=== PATIENT | female | born 1995 | race African-American/Black ===

== ENCOUNTER 2023-09-11 15:58 | Outpatient (AMB) | payer OTHER, SELFPAY ==
--- NOTE | 2023-09-11 16:08 | MHC.OFFWIV ---
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 sharp pain back of head Intake Note: pt is here for c.o earache, ringing, sharp pain in back of head, migraine for over a week Patient Tobacco Use Status: Never used Tobacco Allergies No Known Allergies Allergy (Verified 09/11/23 16:10) Do you need a note to return to daycare/school/sports/work: Yes HPI HPI Comments History of Present Illness Details She presents to office with R ear pain and headache Last year she had MD for R ear clogged due to earwax She said it ended up going away and she never had it cleaned States 1 month ago had cold symptoms [place] like R ear was muffled and difficult hearing She was trying to pop ear without relief Has had intermittent ringing in R ear since States some headaches and neck ache ongoing x 1 week No HT or LOC She admits to increased stress She said no pain now 0/10 Intermittent headaches; usually lasts hours She has taken ibupofen when she gets the pain She said eventually it will go away PFSH Social History Patient Tobacco Use Status: Never used Tobacco Review of Systems Const Denies body aches, Denies chills, Denies fatigue, Denies fever(s) and Reports headache(s) Eyes Denies blurry vision and Denies diplopia ENT Denies vertigo, Denies ear discharge, Reports otalgia (ringing and decreased hearing R ear), Reports headache(s), Denies nasal discharge, Reports neck pain (trapezius pain which feeds into headache) and Denies sinus pressure Card Denies chest pain, Denies syncope and Denies dyspnea Resp Denies cough and Denies dyspnea Musc Denies back pain and Reports neck pain (trapezius pain which feeds into headache) Skin/Breast Denies rash Neuro Denies confusion, Denies vertigo, Denies syncope, Reports headache(s), Denies lack of coordination and Denies focal weakness Psych Denies confusion Endo Denies fatigue Physical Exam Vital Signs: Last Vital Signs Temp 98.6 F 09/11/23 16:09 Pulse 76 09/11/23 16:09 BP 112/62 09/11/23 16:09 Pulse Ox 98 09/11/23 16:09 BMI result Body Mass Index 26.0 General: Non-toxic, NAD. Speaking full sentences. Skin: Warm dry throughout Eye: EOMI HENT: Airway patent. Uvula midline. No pharyngeal erythema or edema. 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 R canal + cerumen, unable to visualize TM. L TM non-erythematous, non-bulging. No TM perforation or hemotympanum noted. Neck: No c-spine tenderness. + trapezius tenderness bilaterally. Lymph: no lymphadenopathy Respiratory: CTA bilaterally. No wheezes, rales or rhonchi Cardiac: RRR. No murmur MSK: Full ROM extremities. Neurology: A/O x 3. Negative pronator drift. 5/5 director of perioperative services strength. CN 2-12 grossly intact. No aphasia or facial droop. Gait without abnormality Psych: Good mood and affect Const General: No confusion Orientation/consciousness: No confusion Neuro General: No confusion Office Procedures Cerumen Removal From which ear canal was the cerumen removed: right Removal: cerumen loop/spoon Notes: patient tolerated procedure well, no complications and ear canal clear [id number] Wax Removal by Spoon/Curette Assessment & Plan Assessment & Plan (1) Impacted cerumen of right ear: Code(s): H61.21 - Impacted cerumen, right ear Plan: Patient seen and evaluated. Verbal consent obtained and earwax removed See procedure note (2) Tension headache: Code(s): G44.209 - Tension-type headache, unspecified, not intractable Plan Pt seen and evaluated. 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 Decrease screen time. Stay hydrated Ibuprofen as needed but should not be daily or every other day If continual, f.u with pcp to discuss other medication alterntives Patient gave verbal understanding and had no additional questions or concerns at time of discharge All questions answered Coding Level of Care Code New Pt Level 3 (91058) Diagnoses Impacted cerumen of right ear H61.21 Tension headache G44.209 CPT Codes Office Procedure - CPT: 51150-Dhw Wax Removal by Spoon/Curette ([id number])
[2023-09-11 16:09] VITALS: BP 112/62; PULSE 76; TEMP 37; O2SAT 98; BMI 26.0
== END 2023-09-11 16:34 | disposition home or self-care (01) ==
PROVIDERS: PCP Nurse Practitioner Family; Visit Provider Physician Assistant
DX: G44.209 Tension-type headache, unspecified, not intractable (principal); H61.21 Impacted cerumen, right ear
CPT/HCPCS: 69210; 99203

== ENCOUNTER 2023-09-30 13:48 | Outpatient (AMB) | payer OTHER, SELFPAY ==
[2023-09-30 13:56] VITALS: BP 104/68; PULSE 80; O2SAT 100; BMI 25.9
--- NOTE | 2023-09-30 13:56 | A.OFFPC_ITS ---
Vital Signs 09/30/23 13:56 Height 5 ft 5 in Weight 155 lb 8 oz BMI 25.9 BP 104/68 Blood Pressure Location Rt brachial Position Sitting Pulse 80 Pulse Source Pulse Oximeter Pulse Oximetry (%) 100 Oxygen Delivery Method Room Air Intake Visit Reasons: New PT Req PE Intake Note: Pt is here to [facility] Pt has hydropulper [place] [facility] [place] last menstrual period known: Yes Last menstrual period: 09/23/23 Allergies No Known Allergies Allergy (Verified 09/30/23 14:06) Medication List - Last Reconciled 09/30/23 by ALEKSANDR Roche No Known Home Meds Tobacco use date assessed: 09/30/23 Dental Screening Dental Screen Date: 09/30/23 Did you have a dental visit in the last 12 months?: Yes Did you have a dental problem in the last 6 months where you did not have access to dental care?: No Was dental information given to patient?: Patient has dentist HPI HPI Comments History of Present Illness Details Patient is a 27-year-old female in today for [facility] care. She was s een in our walk-in clinic 3 weeks prior for cerumen removal the right ear. Patient has OBGYN here at [place]. Will order fasting labs. She has no significant past medical history. 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 1. Little interest or pleasure in doing things: several days 2. Feeling down, depressed, or hopeless: several days 3. Trouble falling or staying asleep, or sleeping too much: not at all 4. Feeling tired or having little energy: several days 5. Poor appetite or overeating: not at all 6. Feeling bad about yourself - or that you are a failure or have let yourself or your family down: not at all 7. Trouble concentrating on things, such as reading the newspaper or watching television: several days 8. Moving or speaking so slowly that other people could have noticed. Or the opposite - being so fidgety or restless that you have been moving around a lot more than usual: not at all 9. Thoughts that you would be better off or of hurting yourself in some way: not at all Total score: 4 Depression Screening Interpretation: Negative Depression Screening Done: Yes 95219 - PHQ-9 Billing: Yes Source: Developed by Drs. Kale Castillo, Dayanara Fisher, Servando Holcomb and colleagues, with an educational inder from [employer]. Thrive Questionnaire Date Thrive assessed: 09/30/23 I am a: Patient What is your living situation today?: I have a steady place to live Within the past 12 months, did the food you bought not last and you didn't have the money to get more?: Sometimes True Within the past 12 months, did you worry whether your food would run out before you got money to buy more?: Sometimes True Do you have trouble paying for medicines?: No Do you have trouble getting transportation to medical appointments?: No Do you have trouble paying your heating and electricity bill?: No Do you have trouble taking care of your child, family member or friend?: No Do you have trouble with day-to-day activities such as bathing, preparing meals, shopping, managing finances, etc.?: No Are you currently unemployed and looking for a job?: No Are you interested in more education?: Yes THRIVE Score: 2 AUDIT C Alcohol Use Questionnaire (AUDIT-C) 1. How often do you have a drink containing alcohol?: 2-4 times a month 2. How many drinks containing alcohol do you have on a typical day when you are drinking?: 1 or 2 3. How often do you have six or more drinks on one occasion?: Never Total Score: 2 COURTNEY-7 AMB Questionnaire COURTNEY-7 Date COURTNEY - 7 assessed: 09/30/23 Feeling nervous, anxious, or on edge: 1 = Several days Not being able to stop or control worryin = Several days Worrying too much about different things: 1 = Several days Trouble relaxin = Several days Being so restless that it is hard to sit still: 0 = Not at all Becoming easily annoyed or irritable: 0 = Not at all Feeling afraid as if something awful might happen: 0 = Not at all Total COURTNEY-7 score (0-4 normal; 5-9 mild; 10-14 moderate; 15-21 severe): 4 Source: Developed by Drs. Kale Castillo, Dayanara Fisher, Servando Holcomb and colleagues, with an educational inder from [employer]. COURTNEY-7 Assessment Billing COURTNEY-7 Assessment Tool: COURTNEY-7 Assessment 48857 Review of Systems Const Details: Constitutional : No Weight loss, No Fever, No Chills, No Fatigue, No Malaise Cardiovascular : No Chest Pain, No SOB, No Dyspnea on Exertion, No Orthopnea, No Edema, No Palpitations Respiratory : No Cough, No Sputum, No Wheezing Gastrointestinal : No Nausea, No Vomiting, No Diarrhea, No Constipation, No abdominal Pain, No Hematochezia, No Melena Neuro : No Weakness, No Numbness, No Dizziness, No Headache Psych : Admits some Anxiety/Panic, No Depression, Denies SI/HI. All other systems reviewed and are negative Physical exam (Primary Care) Vital Signs: Last Vital Signs Pulse 80 09/30/23 13:56 BP 104/68 09/30/23 13:56 Pulse Ox 100 09/30/23 13:56 Oxygen Delivery Method Room Air 09/30/23 13:56 Care Plan Goal for BP management: Vital signs reviewed stable. BMI result Body Mass Index 25.9 Tobacco/Smoking Status: Tobacco use Status Tobacco use date assessed 09/30/23 09/30/23 14:02 Patient Tobacco Use Status Never used Tobacco 09/30/23 14:00 e-Cigarette/Vaping Use Never Used 09/30/23 14:02 Depression Screening Interpretation: Negative Const Other: Appearance: Alert.? Oriented X3.? No acute distress.? Head: Normocephalic, atraumatic, Neck: Normal inspection.? Neck supple.? CVS: Normal heart rate and rhythm.? Pulses normal.? Respiratory: No respiratory distress.? Breath sounds normal.? Neuro: Oriented X 3.? No motor deficit.? No sensory deficit. CN 2-12 intact Assessment and Plan Assessment & Plan (1) Anxiety: Comment: Patient states that she feels some anxiety and would like to try therapy. Patient is declining medication at this time. Patient is meeting today with community navigator to help establish therapist. Patient has been giving information for crisis hotline in case she ever develops feelings of SI or HI. Code(s): F41.9 - Anxiety disorder, unspecified Plan: Take your medications as prescribed. If you were prescribed antibiotics today, it is important that you take your medication to their entirety, do not skip any doses, do not finish them early. Follow-up with your primary care provider this week. Return to the emergency department with new or worsening symptoms. Such as fevers, chills, chest pain, shortness of breath, nausea, vomiting, dizziness, headache, vision changes, lethargy In case of emergency call 911 Plan Follow-up in 4 months with physical exam after fasting blood draw. Orders: Orders Complete Blood Count Auto Diff Today Z13.0 - Encounter for screening for diseases of the blood and blood-forming organs and certain disorders involving the immune mechanism Lipid Panel Today Z13.220 - Encounter for screening for lipoid disorders TSH reflex Free T4 Today Z13.29 - Encounter for screening for other suspected endocrine disorder Vitamin D 25-OH (D2 and D3) Today Z13.21 - Encounter for screening for nutritional disorder Comprehensive Met. Panel Today Z91.89 - Other specified personal risk factors, not elsewhere classified UA CC w/rflx Micro + Cult Today Z13.89 - Encounter for screening for other disorder Vitamin B6 Today Z13.21 - Encounter for screening for nutritional disorder Vitamin B12 Today Z13.21 - Encounter for screening for nutritional disorder Coding Level of Care Code Est Pt Level 3 (76082) Diagnoses Anxiety F41.9 Additional Codes COURTNEY-7 Assessment Billing - COURTNEY-7 Assessment Tool: COURTNEY-7 Assessment 60336 ([id number]) Time Spent (min) 25
== END 2023-09-30 14:49 | disposition home or self-care (01) ==
PROVIDERS: PCP Nurse Practitioner Family; Visit Provider Nurse Practitioner Primary Care
DX: F41.9 Anxiety disorder, unspecified (principal)
CPT/HCPCS: 99213

== ENCOUNTER 2023-09-30 14:49 | Outpatient (REF) | payer OTHER, SELFPAY ==
[2023-09-30 16:07] LABS: Appearance Urine Turbid; Color Urine Dark Yellow; Glucose Urine UA Negative (Negative); Leukocyte Esterase Urine Trace (Negative); Nitrite Urine Negative (Negative); PH 5.5 (5.0-9.0); Specific Gravity - Urine >= 1.030 (1.005-1.025); UMIC TRIGGER UACC YES; Urine Blood Negative (Negative); Urine Ketones Trace mg/dL (Negative); Urine Protein Trace mg/dL (Neg-Trace)
[2023-09-30 16:22] LABS: MANUAL DIFF FLAG NO
[2023-09-30 16:35] LABS: Basophils Absolute Auto 0.1 X10*3/uL (0.0-0.2); Basophils Percent Auto 1.1 % (0-2); Eosinophils Absolute Auto 0.1 X10*3/uL (0.0-0.4); Eosinophils Percent Auto 1.6 % (0-4); Hematocrit 43.5 % (37.0-47.0); Hemoglobin 14.5 g/dl (12.0-16.0); Imm Gran Abs Auto 0.02 X10*3/uL (0.00-0.03); Imm Gran Pct Auto 0.3 % (0.0-0.4); Lymphocytes Absolute Auto 1.2 X10*3/uL (1.2-4.9); Lymphocytes Percent Auto 19.8 % (20-40); Mean Corpuscular HGB Conc 33.3 g/dl (31.0-35.0); Mean Corpuscular Hemoglobin 29.6 pg (27.0-33.0); Mean Corpuscular Volume 88.8 fL (80.0-98.0); Mean Platelet Volume 9.9 fL (9.4-12.3); Monocytes Absolute Auto 0.5 X10*3/uL (0.1-1.2); Monocytes Percent Auto 7.7 % (2-11); Neutrophils Absolute Auto 4.3 x10*3/uL (2.0-8.3); Neutrophils Percent Auto 69.5 % (45-73); Platelet Count 300 X10*3/uL (160-400); Red Cell Distribution Width 12.5 % (11.0-16.0); White Blood Count 6.3 X10*3/uL (4.8-10.8)
[2023-09-30 16:50] LABS: Alanine Aminotransferase 13 U/L (0-31); Albumin Level 4.9 g/dL (3.5-5.0); Alkaline Phosphatase 61 U/L (39-117); Anion Gap 12 (12-20); Aspartate Amino Transferase 18 U/L (5-31); Bilirubin Total 0.7 mg/dL (0.0-1.0); Blood Urea Nitrogen 13 mg/dL (9-16); Calcium 9.7 mg/dL (8.4-10.2); Carbon Dioxide 25 mmol/L (22-29); Chloride 108 mmol/L (96-108); Cholesterol 193 mg/dL (<200); Estimated Glomerular Filt Rate > 60; Glucose Random 90 mg/dL (60-115); HDL Cholesterol 68 mg/dL (>40); LDL Cholesterol Calculated 115 mg/dL (<100); Potassium 4.3 mmol/L (3.3-5.1); Sodium 141 mmol/L (135-145); Triglycerides 54 mg/dL (<150)
[2023-09-30 17:06] LABS: TSH reflex Free T4 1.18 uIU/mL (0.32-4.0)
[2023-09-30 17:08] LABS: Vitamin B12 565 pg/mL (200-900)
[2023-09-30 17:10] LABS: Bacteria Urine 1+ (None Seen); Hyaline Casts Urine 0-2 /LPF (0-2); RBC Urine 0-2 /HPF (0-2); WBC Urine 0-5 /HPF (0-5)
[2023-10-04 14:08] LABS: Vitamin B6 10.5 ng/mL (2.1-21.7)
[2023-10-04 17:23] LABS: Vitamin D 25-OH, D2 12 ng/mL; Vitamin D 25-OH, D3 7 ng/mL; Vitamin D 25-OH, Total 19 ng/mL (30-100)
== END 2023-09-30 14:50 | disposition home or self-care (01) ==
LOC: HO.HMGCLDS 14:49
PROVIDERS: PCP Nurse Practitioner Primary Care; Visit Provider Nurse Practitioner Primary Care
DX: Z13.29 Encounter for screening for other suspected endocrine disorder (principal); Z13.21 Encounter for screening for nutritional disorder; Z13.0 Encounter for screening for diseases of the blood and blood-forming organs and certain disorders involving the immune mechanism; Z13.220 Encounter for screening for lipoid disorders; Z91.89 Other specified personal risk factors, not elsewhere classified
CPT/HCPCS: 36415; 80053; 80061; 81001; 82306; 82607; 84207; 84443; 85025

== ENCOUNTER 2023-10-18 10:39 | Outpatient (AMB) | payer OTHER, SELFPAY ==
--- NOTE | 2023-10-18 10:45 | AM.OFFWIN_ITS ---
Intake Vital Signs 10/18/23 10:50 Weight 154 lb BP 110/68 Blood Pressure Location Lt brachial Position Sitting Pulse 98 Pulse Source Pulse Oximeter Pulse Oximetry (%) 100 Oxygen Delivery Method Room Air Intake Visit Reasons: EP ?UTI Intake Note: Patient here because on she had an upset stomach after eating and then later noticed urine is darker and has a odor. Patient Tobacco Use Status: Never used Tobacco Allergies No Known Allergies Allergy (Verified 10/18/23 10:52) Do you need a note to return to daycare/school/sports/work: No HPI HPI Comments History of Present Illness Details This is a 27 old female who presented to the walk-in clinic complaining of nausea/urinary symptoms. Patient states she and left index morning feeling. She reports several episodes of nausea yesterday. She then also developed mild dysuria and states that she has some mild burning at the end of her urinary stream. She denies fevers/chills. She reports mild abdominal cramping but denies any abdominal pain. She denies any diarrhea/constipation. 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 Current occupational exposures/hazards: No Cognitive needs: No Hearing needs: No Vision needs: No Review of Systems Const All systems reviewed & are unremarkable except as noted in HPI and below Reports no additional complaints Eyes Reports no additional complaints ENT Reports no additional complaints Card Reports no additional complaints Resp Reports no additional complaints GI Reports no additional complaints Reports no additional complaints Musc Reports no additional complaints Skin/Breast Reports system reviewed and no additional complaints, except as documented Neuro Reports no additional complaints Psych Reports no additional complaints Endo Reports no additional complaints Anish/Lymph Reports no additional complaints Aller/Immun Reports no additional complaints Physical Exam Vital Signs: Last Vital Signs Pulse 98 10/18/23 10:50 BP 110/68 10/18/23 10:50 Pulse Ox 100 10/18/23 10:50 Oxygen Delivery Method Room Air 10/18/23 10:50 Const Other: Vital signs reviewed. Constitutional: Non-toxic appearing. No acute distress. Well-developed and well-nourished. HEENT: Normocephalic and atraumatic. Skin: Warm and dry. No rashes or lesions noted. Neck: Full and painless range of motion. No cervical lymphadenopathy. Cardio: Regular rate. No lower extremity edema. Pulmonary: No respiratory distress. No accessory muscle usage. Gastrointestinal: Soft, nontender, and nondistended in all 4 quadrants. Normoactive bowel sounds in all 4 quadrants. Genitourinary: No CVA tenderness. Musculoskeletal: Normal range of motion in joints throughout the body. No deformity or other signs of injury. Neuro: Alert and oriented x4. Cranial nerves 2-12 grossly intact. No focal deficits appreciated. Psych: Normal mood and affect. Results AMB Urinalysis, Automated UA Leukoctes 0 Sharath/uL Last Edit by Debbie Armijo [facility] on 10/18/23 10:59 UA Nitrite Negative Last Edit by PauGetachew Armijo [facility] on 10/18/23 10:59 UA Urobilinogen 0.2 mg/dL Last Edit by PauLissa Armijo [facility] on 10/18/23 10:59 UA Protein 30 mg/dL Last Edit by PauLissa Armijo [facility] on 10/18/23 10:59 UA pH 6.0 Last Edit by PauGetachew Armijo, [facility] on 10/18/23 10:59 UA Blood 0 Sav/uL Last Edit by [facility] on 10/18/23 10:59 UA Specific [place] 1.020 Last Edit by PauGetachew Armijo [facility] on 10/18/23 10:59 UA Ketone Positive Last Edit by PauLissa Armijo [facility] on 10/18/23 10:59 UA Bilirubin 2 mg/dL Last Edit by PauLissa Armijo [facility] on 10/18/23 10:59 UA Glucose 0 mg/dL Last Edit by [facility], [facility] on 10/18/23 10:59 Assessment & Plan Assessment & Plan (1) Nausea and vomiting: Code(s): R11.2 - Nausea with vomiting, unspecified Qualifiers: Vomiting type: unspecified Qualified Code(s): R11.2 - Nausea with vomiting, unspecified Plan: This is a 27-year-old female who presents to the walk-in clinic complaining of nausea/vomiting and mild urinary symptoms. Patient states her symptoms started after eating a grilled cheese. Patient's urinalysis is negative for nitrites or leukocyte esterase so urinary tract infection does not seem likely at this time. However, patient states she has had urinary tract infections in the past and they felt similar to her current symptoms. I explained to the patient that she very likely has a gastroenteritis; however, I will send her urine for culture to ensure this is not a urinary tract infection given she does have some mild urinary symptoms. Otherwise, I recommended conservative management such as bland diet as tolerated, increased fluid intake, NPO ondansetron/dicyclomine as needed for nausea/vomiting/abdominal cramping. Patient verbalized her understanding and she is in agreement with the plan. Orders: Orders AMB Urinalysis Automated Today Z13.9 - Encounter for screening, unspecified Urine Culture Today R39.9 - Unspecified symptoms and signs involving the genitourinary system Medications: New ondansetron 4 mg PO Q8H PRN 10 tabs 0RF nausea and vomiting dicyclomine 10 mg PO QID PRN 10 caps 0RF abdominal pain Coding Level of Care Code Est Pt Level 3 (82305) Diagnoses Nausea and vomiting, unspecified vomiting type R11.2 Vomiting type: unspecified
[2023-10-18 10:50] VITALS: BP 110/68; PULSE 98; O2SAT 100
== END 2023-10-18 11:25 | disposition home or self-care (01) ==
PROVIDERS: PCP Nurse Practitioner Primary Care; Visit Provider Physician Assistant Medical
DX: R11.2 Nausea with vomiting, unspecified (principal)
CPT/HCPCS: 81003; 99213

== ENCOUNTER 2023-10-18 13:37 | Outpatient (REF) | payer OTHER, SELFPAY | END 2023-10-18 13:38 | disposition home or self-care (01) | LOC: HO.LNP 13:37 | PROVIDERS: Visit Provider Physician Assistant Medical | DX: R39.9 Unspecified symptoms and signs involving the genitourinary system (principal) | CPT/HCPCS: 87086 ==

== ENCOUNTER 2024-01-27 14:10 | Outpatient (AMB) | payer SELFPAY ==
--- NOTE | 2024-01-27 14:12 | A.OFFPC_ITS ---
Vital Signs 01/27/24 14:16 Height 5 ft 5 in Weight 141 lb BMI 23.5 BP 118/70 Blood Pressure Location Lt brachial Position Sitting Pulse 71 Pulse Source Pulse Oximeter Pulse Oximetry (%) 98 Oxygen Delivery Method Room Air Intake Visit Reasons: Annual PE Intake Note: pt is here for annual PE. Pap smear due. Has not yet seen OBGYN at [facility] [place] Allergies No Known Allergies Allergy (Verified 01/27/24 14:36) Medication List - Last Reconciled 01/27/24 by ALEKSANDR Roche melatonin mg PO Tobacco use date assessed: 01/27/24 Dental Screening Dental Screen Date: 01/27/24 Did you have a dental visit in the last 12 months?: Yes Did you have a dental problem in the last 6 months where you did not have access to dental care?: No Was dental information given to patient?: Patient has dentist HPI HPI Comments History of Present Illness Details Patient is a 28-year-old female in today for physical exam. Patient is due for Pap smear will refer. Patient is up-to-date with tetanus. Has a past medical history significant for: Anxiety and depression. Patient is interested in establishing care with therapist. Had referral placed to previous visit 4 months prior however has not yet establish care. Patient is meeting again today with [facility] to establish therapy. Patient has no SI/HI utilizes melatonin 5 mg p.o. p.r.n. at night for insomnia secondary to anxiety. Slightly increased LDL. Patient has been instructed to improve diet and exercise. Will redraw. 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 How often do you have a drink containing alcohol?: Monthly or less 2. How many drinks containing alcohol do you have on a typical day when you are drinking?: 1 or 2 3. How often do you have six or more drinks on one occasion?: Never Total Score: 1 Review of Systems Const All systems reviewed & are unremarkable except as noted in HPI and below Physical exam (Primary Care) Vital Signs: Last Vital Signs Pulse 71 01/27/24 14:16 BP 118/70 01/27/24 14:16 Pulse Ox 98 01/27/24 14:16 Oxygen Delivery Method Room Air 01/27/24 14:16 Care Plan Goal for BP management: Blood pressure is controlled. BMI result Body Mass Index 23.5 Tobacco/Smoking Status: Tobacco use Status Tobacco use date assessed 01/27/24 01/27/24 14:23 Patient Tobacco Use Status Never used Tobacco 01/27/24 14:12 e-Cigarette/Vaping Use Never Used 01/27/24 14:12 Thrive Assessment: Date of Thrive Assessment Date Thrive assessed 09/30/23 01/27/24 14:12 Const General: cooperative and no acute distress Orientation/consciousness: patient oriented x3 Limitations: no limitations HENMT Head: Yes normal to inspection and Yes normocephalic Ears: hearing grossly normal bilaterally and TM's normal bilaterally General nose exam: Normal external nose present Face and sinus: Yes normal facial exam Mouth: Normal oral and palatal mucosa present Eyes Conjunctivae: conjunctivae normal Sclerae: sclerae normal Corneas: corneas normal Pupils: Equal, round and reactive pupils present EOM: EOMs intact bilaterally Direct Ophthalmoscopy: normal light reflex and no photophobia Neck Neck: Yes normal visual inspection, Yes full ROM and Yes no lymphadenopathy Thyroid: Thyroid normal Carotids: normal carotid upstroke Lymphatic: no lymphadenopathy noted Resp Effort & Inspection: normal respiratory effort Auscultation: clear to auscultation bilaterally Cardio Rate: regular rate Rhythm: regular rhythm Heart sounds: S1 normal heart sound present and S2 normal heart sound present Peripheral pulses: Peripheral pulses 2+ throughout GI Inspection: Yes normal to inspection Auscultation: normal bowel sounds General: Yes no CVA tenderness Back/Spine/Pelvis Back: no CVA tenderness Skin General skin exam: no rashes or lesions noted Neuro General: patient oriented x3 and CN's II-XI intact bilaterally Cranial nerves: Yes Equal, round and reactive pupils present Cognition (Neuro): normal cognition Gait exam (Neuro): Normal gait present Motor exam (neuro): 5/5 motor strength present throughout Romberg Test: Negative Extrem General: Yes normal to inspection and Yes full ROM Psych Thought process: Normal thought process present Thought content: suicidality and no homicidality Insight: Good insight present (Psych) Judgement: Good judgement present (Psych) Assessment and Plan Assessment & Plan (1) Physical exam: Comment: Patient is due for Pap smear will refer. Patient is up-to-date with tetanus. Has a past medical history significant for: Anxiety and depression. Patient is interested in establishing care with therapist. Had referral placed to previous visit 4 months prior however has not yet establish care. Patient is meeting again today with [facility] to establish therapy. Patient has no SI/HI utilizes melatonin 5 mg p.o. p.r.n. at night for insomnia secondary to anxiety. Slightly increased LDL. Patient has been instructed to improve diet and exercise. Will redraw. Patient can utilize fish oil supplement Code(s): Z00.00 - Encounter for general adult medical examination without abnormal findings (2) Anxiety: Comment: Patient states that she feels some anxiety and would like to try therapy. Patient is declining medication at this time. Patient is meeting today with community navigator to help establish therapist. Code(s): F41.9 - Anxiety disorder, unspecified Orders: Orders Vitamin D 25-OH (D2 and D3) Today Z13.21 - Encounter for screening for nutritional disorder Lipid Panel Today Z13.220 - Encounter for screening for lipoid disorders Referrals JEWEL WAXER Referral Z12.4 - Encounter for screening for malignant neoplasm of cervix Coding Level of Care Code Est Pt Level 3 (48431) Diagnoses Physical exam Z00.00 Anxiety F41.9 Time Spent (min) 28
[2024-01-27 14:16] VITALS: BP 118/70; PULSE 71; O2SAT 98; BMI 23.5
== END 2024-01-27 15:43 | disposition home or self-care (01) ==
PROVIDERS: PCP Nurse Practitioner Primary Care; Visit Provider Nurse Practitioner Primary Care
DX: Z00.00 Encounter for general adult medical examination without abnormal findings (principal); F41.9 Anxiety disorder, unspecified
CPT/HCPCS: 99213

== ENCOUNTER 2024-02-17 11:56 | Emergency (ER) | payer SELFPAY ==
--- NOTE | ~2024-02-17 | XR_ITS ---
EXAMINATION: XR LUMBOSACRAL SPINE CLINICAL INFORMATION: Pain. COMPARISON: None available. TECHNIQUE: Three views of the lumbosacral spine. FINDINGS: Minimal dextrocurvature of the lumbar spine, likely positional. The lumbar lordosis is maintained. No acute fracture or subluxation. No loss of vertebral body or intervertebral disc height. No concerning lytic or blastic osseous lesion. No abnormal soft tissue calcification. XR/XR lumbar spine 2-3V IMPRESSION: Minimal dextrocurvature of the lumbar spine, likely positional. No acute osseous abnormality.
[2024-02-17 12:02] VITALS: BP 124/79; PULSE 103; RESP 16; TEMP 36.8; O2SAT 98; BMI 22.9
--- NOTE | 2024-02-17 12:05 | ED_ITS ---
[facility] - General Adult General Chief complaint: Back Pain/Injury Stated complaint: Abd pain, lower back pain Time Seen by Provider: 02/17/24 12:50 Source: patient Mode of arrival: ambulatory Limitations: no limitations History of Present Illness ED Provider: Evita KIRKLAND narrative: Patient is a 28-year-old female presenting to the emergency department with complaint of lower back pain since Saturday. She denies fall or other trauma. Reports some foul-smelling urine within the past few days. Denies any dysuria or urgency. Denies fevers. Reports a brief episode of abdominal pain several weeks ago which has since resolved and not returned. States at times pain radiates to left knee. Denies any saddle anesthesia or bowel or bladder incontinence. Denies any history of cancer IV drug use. Using ibuprofen with little relief. complaint: back pain Onset (ago): day(s) Location: back Radiation: extremity Severity: moderate Quality: aching Pain Consistency: colicky Relieving factors: rest Exacerbating factors: movement Associated symptoms: denies other symptoms Treatments prior to arrival: NSAID Related Data Home Medications ?Medication ?Instructions ?Recorded ?Confirmed melatonin 5 mg capsule mg PO 01/27/24 01/27/24 Previous Rx's ?Medication ?Instructions ?Recorded cephalexin 500 mg capsule 500 mg PO QID #28 caps 02/17/24 Allergies Allergy/AdvReac Type Severity Reaction Status Date / Time No Known Allergies Allergy Verified 02/17/24 12:05 Review of Systems 2 Review of Systems: As per HPI. Yes all other systems are reviewed and are negative Constitutional: Constitutional: Reports as per HPI [facility] Past Medical History Surgical History No pertinent past surgical history Family History Family History Mother Colon cancer Maternal Grandmother Lung cancer Social History Social History Housing: Apartment Patient Tobacco Use Status: Never used Tobacco e-Cigarette/Vaping Use: Never Used Second Hand Smoke Exposure: No Advance Directives: No Advance Directives Information Provided: Yes Do you have a plan to hurt others: No Plan service: No Current occupational status: employed 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 Blood pressure normal. Heart rate slightly tachycardic. Respiratory rate normal. Temperature normal. Oxygen saturation normal. Const General: cooperative, healthy appearing and no acute distress Orientation/consciousness: oriented to person, oriented to place, oriented to time and patient oriented x3 Limitations: no limitations HENMT Head: Yes normocephalic and Yes atraumatic Ears: external ears normal General nose exam: Normal external nose present Face and sinus: Yes face symmetric Mouth: oropharynx normal and moist mucous membranes Throat: Yes uvula midline Eyes Pupils: Equal, round and reactive pupils present Neck Neck: Yes normal visual inspection and Yes supple Resp Effort & Inspection: normal respiratory effort and able to speak in complete sentences Auscultation: clear to auscultation bilaterally Cardio Rate: regular rate Rhythm: regular rhythm Heart sounds: S1 normal heart sound present and S2 normal heart sound present GI Palpation (GI): Soft to palpation and nontender Auscultation: normoactive bowel sounds General: Yes no CVA tenderness Back/Spine/Pelvis Back: no CVA tenderness Thoracic/Lumbar Spine: thoracic and lumbar spine normal to inspection, thoraco- lumbar ROM normal, straight leg raise negative bilaterally, paraspinal muscle tenderness on the left in the mid lumbar, No thoracic spinal tenderness and No lumbar spinal tenderness Skin General skin exam: elasticity normal and turgor normal Neuro General: oriented to person, oriented to place, oriented to time, patient oriented x3, gait normal, tone normal, moves all extremities, Normal light touch and pain sensation, no focal motor deficits, CN's II-XI intact bilaterally and deep tendon reflexes 2+ bilaterally Cranial nerves: Yes Equal, round and reactive pupils present Cognition (Neuro): normal cognition Extrem General: Yes full ROM, Yes no pedal edema and Yes no calf tenderness Psych Mental Status: mental status grossly normal Affect: normal affect Thought process: Normal thought process present Course Course Course Narrative: RME performed by Jennifer Robles PA-C. Patient is a 28 year old assigned female at presenting to the emergency department with left sided low back pain and now resolved abdominal pain. Patient states weeks ago she had abdominal pain and is now having left sided low back pain. Detailed physical exam and review of systems are deferred to the p 3 armament/ordnance ima technician. Labs ordered. Patient placed back in the waiting room pending room availability and results. Medical Decision Making Medical Decision Making [facility] Narrative: Patient is a 28-year-old female presenting to the emergency department with complaint of lower back pain since Saturday. On exam patient is awake, A+Ox3, VS WNL, afebrile, normal neurological exam without focal deficits, physical exam findings as above. Given reported symptoms and physical exam findings, lumbar strain, lumbar radiculopathy, UTI. Labs notable for no leukocytosis, no significant electrolyte abnormalities, no evidence of GRACIE, negative hCG. No acute abnormalities on lumbar x-ray. My interpretation is in agreement with radiologist's interpretation. Urinalysis notable for 2+ leukocytes, 11-20 wbc's, 2+ bacteria, will treat for UTI at this time. Instructed patient follow- up with PCP. Return precautions discussed at bedside. Patient verbalized understanding of and agreement with plan. Differential Diagnosis Differential Diagnoses: The differential diagnosis associated with the presentation includes As per [facility]. Lab Data [facility] Lab Attestation statement: I reviewed the patient's lab results. As per [facility]. 02/17/24 12:23 02/17/24 12:23 Labs: Lab Results 02/17/24 02/17/24 Range/Units 12:23 15:23 WBC 6.7 (4.8-10.8) X10*3/uL RBC 4.72 (4.20-5.50) X10*6/uL Hgb 13.9 (12.0-16.0) g/dl Hct 41.8 (37.0-47.0) % MCV 88.6 (80.0-98.0) fL MCH 29.4 (27.0-33.0) pg MCHC 33.3 (31.0-35.0) g/dl RDW 12.9 (11.0-16.0) % Plt Count 262 (160-400) X10*3/uL MPV 9.1 L (9.4-12.3) fL Immature Gran % (Auto) 0.4 (0.0-0.4) % Neut % (Auto) 72.2 (45-73) % Lymph % (Auto) 17.2 L (20-40) % Emery % (Auto) 8.7 (2-11) % Eos % (Auto) 0.6 (0-4) % Baso % (Auto) 0.9 (0-2) % Lymph # (Auto) 1.2 (1.2-4.9) X10*3/uL Emery # (Auto) 0.6 (0.1-1.2) X10*3/uL Eos # (Auto) 0.0 (0.0-0.4) X10*3/uL Baso # (Auto) 0.1 (0.0-0.2) X10*3/uL Abs Immat Gran (auto) 0.03 (0.00-0.03) X10*3/uL Absolute Neuts (auto) 4.8 (2.0-8.3) x10*3/uL Absolute Nucleated RBC 0.000 (0.0-0.012) X10*3/uL Nucleated RBC % (auto) 0.0 (0.0-0.2) /100WBC Sodium 141 (135-145) mmol/L Potassium 4.0 (3.3-5.1) mmol/L Chloride 107 (96-108) mmol/L Carbon Dioxide 23 (22-29) mmol/L Anion Gap 15 (12-20) BUN 8 L (9-16) mg/dL Creatinine 0.77 (0.5-1.4) mg/dL Estim Creat Clear Calc 97.0 Estimated GFR > 60 Random Glucose 88 (60-115) mg/dL Calcium 9.2 (8.4-10.2) mg/dL Magnesium 2.1 (1.6-2.6) mg/dL Total Bilirubin 0.5 (0.0-1.0) mg/dL AST 19 (5-31) U/L ALT 12 (0-31) U/L Alkaline Phosphatase 57 (39-117) U/L Total Protein 7.4 (6.5-8.0) g/dL Albumin 4.6 (3.5-5.0) g/dL Beta HCG, Quant < 2 mIU/mL Urine Color Yellow Urine Appearance Cloudy Urine pH 5.5 (5.0-9.0) Ur Specific Orgas 1.015 (1.005-1.025) Urine Protein Negative (Neg-Trace) mg/dL Urine Glucose (UA) Negative (Negative) mg/dL Urine Ketones 15 (Negative) mg/dL Urine Blood Negative (Negative) Urine Nitrite Negative (Negative) Ur Leukocyte Esterase Moderate (2+) H (Negative) Urine RBC 0-2 (0-2) /HPF Urine WBC 11-20 H (0-5) /HPF Ur Squamous Epith Cells 11-20 (0-2) /HPF Urine Bacteria 2+ (None Seen) Hyaline Casts 0-2 (0-2) /LPF Independent Interpretation I performed an independent interpretation of an: Plain X-Ray Interpretation: No acute abnormalities on lumbar spine x-ray. Radiology Impression Discussion of test interpretation with radiology: I have reviewed the radiologist's reading. Radiologist Impression: XR/XR lumbar spine 2-3V IMPRESSION: Minimal dextrocurvature of the lumbar spine, likely positional. No acute osseous abnormality. External Record Review External record reviewed: Inpatient record, Office record and Outpatient record Prescription Management I considered prescription management with: Antibiotic Discharge Plan Discharge Clinical Impression: Urinary tract infection Patient Disposition: Home, Self-Care Instructions: Urinary Tract Infection in Women (DC) Additional Instructions: You have been evaluated in the emergency department today for your urinary symptoms. Your evaluation, including urinalysis, suggests that your symptoms are due to urinary tract infection. Please take your prescribed antibiotics for the full course of medication as directed. Please follow-up with your primary care provider within 2 days. Return to the emergency department if you experience fevers 100.4? F or greater, worsening or uncontrolled pain, vomiting, flank pain, or for any other concerning symptoms. Prescriptions: New cephalexin 500 mg capsule 500 mg PO QID Qty: 28 0RF No Action melatonin 5 mg capsule PO Print Language: Swedish
[2024-02-17 12:27] LABS: MANUAL DIFF FLAG NO
[2024-02-17 12:29] LABS: Basophils Absolute Auto 0.1 X10*3/uL (0.0-0.2); Basophils Percent Auto 0.9 % (0-2); Eosinophils Percent Auto 0.6 % (0-4); Hematocrit 41.8 % (37.0-47.0); Hemoglobin 13.9 g/dl (12.0-16.0); Imm Gran Abs Auto 0.03 X10*3/uL (0.00-0.03); Imm Gran Pct Auto 0.4 % (0.0-0.4); Lymphocytes Absolute Auto 1.2 X10*3/uL (1.2-4.9); Lymphocytes Percent Auto 17.2 % (20-40); Mean Corpuscular HGB Conc 33.3 g/dl (31.0-35.0); Mean Corpuscular Hemoglobin 29.4 pg (27.0-33.0); Mean Corpuscular Volume 88.6 fL (80.0-98.0); Mean Platelet Volume 9.1 fL (9.4-12.3); Monocytes Absolute Auto 0.6 X10*3/uL (0.1-1.2); Monocytes Percent Auto 8.7 % (2-11); Neutrophils Absolute Auto 4.8 x10*3/uL (2.0-8.3); Neutrophils Percent Auto 72.2 % (45-73); Platelet Count 262 X10*3/uL (160-400); Red Blood Count 4.72 X10*6/uL (4.20-5.50); Red Cell Distribution Width 12.9 % (11.0-16.0); White Blood Count 6.7 X10*3/uL (4.8-10.8)
[2024-02-17 12:51] LABS: Alanine Aminotransferase 12 U/L (0-31); Albumin Level 4.6 g/dL (3.5-5.0); Alkaline Phosphatase 57 U/L (39-117); Anion Gap 15 (12-20); Aspartate Amino Transferase 19 U/L (5-31); Bilirubin Total 0.5 mg/dL (0.0-1.0); Blood Urea Nitrogen 8 mg/dL (9-16); Calcium 9.2 mg/dL (8.4-10.2); Carbon Dioxide 23 mmol/L (22-29); Chloride 107 mmol/L (96-108); Estimated Glomerular Filt Rate > 60; Glucose Random 88 mg/dL (60-115); Magnesium 2.1 mg/dL (1.6-2.6); Sodium 141 mmol/L (135-145); Total Protein 7.4 g/dL (6.5-8.0)
[2024-02-17 12:55] LABS: HCG Quantitative < 2 mIU/mL
[2024-02-17 15:31] LABS: Appearance Urine Cloudy; Color Urine Yellow; Glucose Urine UA Negative (Negative); Leukocyte Esterase Urine Moderate (2+) (Negative); Nitrite Urine Negative (Negative); PH 5.5 (5.0-9.0); Specific Gravity - Urine 1.015 (1.005-1.025); UMIC TRIGGER UACC YES; Urine Blood Negative (Negative); Urine Ketones 15 mg/dL (Negative); Urine Protein Negative (Neg-Trace)
[2024-02-17 15:36] LABS: Bacteria Urine 2+ (None Seen); Hyaline Casts Urine 0-2 /LPF (0-2); RBC Urine 0-2 /HPF (0-2); UACC Culture Trigger YES
[2024-02-17 16:36] VITALS: BP 120/74; PULSE 77; RESP 16; TEMP 35.9; O2SAT 99
[2024-02-17 17:21] VITALS: BP 120/74; PULSE 77; RESP 16; TEMP 36.6; O2SAT 99
== END 2024-02-17 17:22 | disposition home or self-care (01) ==
PROVIDERS: Physician Assistant Medical; Registered Nurse Emergency; Emergency Provider Emergency Medicine
DX: N39.0 Urinary tract infection, site not specified (principal); M54.50 Low back pain, unspecified
CPT/HCPCS: 36415; 72100; 80053; 81001; 83735; 84702; 85025; 87086; 99283

== ENCOUNTER 2024-03-16 23:52 | Emergency (ER) | payer SELFPAY ==
[2024-03-17 00:01] VITALS: BP 118/70; PULSE 70; RESP 16; TEMP 36.6; O2SAT 99; BMI 21.6
[2024-03-17 00:23] LABS: Appearance Urine Clear; Color Urine Yellow; Glucose Urine UA Negative (Negative); Leukocyte Esterase Urine Trace (Negative); Nitrite Urine Negative (Negative); PH 7.5 (5.0-9.0); Specific Gravity - Urine 1.025 (1.005-1.025); UMIC TRIGGER UACC YES; Urine Blood Negative (Negative); Urine Ketones Negative (Negative); Urine Protein Negative (Neg-Trace)
[2024-03-17 00:28] LABS: Bacteria Urine 1+ (None Seen); Hyaline Casts Urine 0-2 /LPF (0-2); RBC Urine 0-2 /HPF (0-2); WBC Urine 0-5 /HPF (0-5)
--- NOTE | 2024-03-17 07:24 | ED_ITS ---
HPI - General Adult General Chief complaint: Back Pain/Injury Stated complaint: lower back pain, possible uti Time Seen by Provider: 03/17/24 07:21 Source: patient Mode of arrival: ambulatory Limitations: no limitations History of Present Illness ED Provider: anita KIRKLAND narrative: Patient is a 28-year-old female presenting to the emergency department with complaint of ongoing lower back pain radiating down left leg. Reports similar pain a month ago for which she was seen in this emergency department and treated for UTI. She states that her symptoms briefly improved but then returned. Denies dysuria, urinary urgency or any other urinary symptoms. Denies fevers. Denies history of cancer IV drug use. Denies saddle anesthesia or bowel or bladder incontinence. Denies fall or other injury precipitating symptoms. MD complaint: Back pain Onset (ago): day(s) Location: back Radiation: extremity Severity: severe Quality: burning Pain Consistency: constant Associated symptoms: denies other symptoms Related Data Home Medications ?Medication ?Instructions ?Recorded ?Confirmed melatonin 5 mg capsule mg PO 01/27/24 01/27/24 Previous Rx's ?Medication ?Instructions ?Recorded cephalexin 500 mg capsule 500 mg PO QID #28 caps 02/17/24 cyclobenzaprine 5 mg tablet 5 mg PO TID PRN muscle spasm #10 03/17/24 tabs lidocaine 5 % topical patch 1 patch topical DAILY #15 ea 03/17/24 prednisone 20 mg tablet 40 mg (2 x 20 mg) PO DAILY #10 tabs 03/17/24 Allergies Allergy/AdvReac Type Severity Reaction Status Date / Time No Known Allergies Allergy Verified 03/17/24 00:04 Review of Systems Review of Systems: As per HPI. 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 Blood pressure normal. Heart rate normal. Respiratory rate normal. Temperature normal. Oxygen saturation normal. Const General: cooperative, healthy appearing and no acute distress Orientation/consciousness: oriented to person, oriented to place, oriented to time and patient oriented x3 Limitations: no limitations HENMT Head: Yes normocephalic and Yes atraumatic Ears: external ears normal General nose exam: Normal external nose present Face and sinus: Yes face symmetric Mouth: oropharynx normal and moist mucous membranes Throat: Yes uvula midline Eyes Pupils: Equal, round and reactive pupils present Neck Neck: Yes normal visual inspection and Yes supple Resp Effort & Inspection: normal respiratory effort and able to speak in complete sentences Auscultation: clear to auscultation bilaterally Cardio Rate: regular rate Rhythm: regular rhythm Heart sounds: S1 normal heart sound present and S2 normal heart sound present GI Palpation (GI): Soft to palpation and nontender Auscultation: normoactive bowel sounds General: Yes no CVA tenderness Back/Spine/Pelvis Back: no CVA tenderness Thoracic/Lumbar Spine: thoracic and lumbar spine normal to inspection, thoraco- lumbar ROM normal, straight leg raise negative bilaterally, pain with thoraco- lumbar ROM, paraspinal muscle tenderness on the left in the upper thoracic and in the mid lumbar, No thoracic spinal tenderness and No lumbar spinal tenderness Skin General skin exam: elasticity normal and turgor normal Neuro General: oriented to person, oriented to place, oriented to time, patient oriented x3, moves all extremities, no focal motor deficits and CN's II-XI intact bilaterally Cranial nerves: Yes Equal, round and reactive pupils present Cognition (Neuro): normal cognition Extrem General: Yes full ROM, Yes no pedal edema and Yes no calf tenderness Psych Mental Status: mental status grossly normal Affect: normal affect Thought process: Normal thought process present Medical Decision Making Medical Decision Making [facility] Narrative: Patient is a 28-year-old female presenting to the emergency department with complaint of ongoing lower back pain radiating down left leg. On exam patient is awake, A+Ox3, VS WNL, afebrile, normal neurological exam without focal deficits, physical exam findings as above. Given reported symptoms and physical exam findings, initial differential includes lumbar strain, lumbar rad iculopathy, UTI, degenerative disc disease, disc herniation, spinal stenosis, spondylosis. Less likely vertebral fracture. No red flag findings concerning for malignancy/mass, SEA, cauda equina/cord compression. Urinalysis notable for trace leukocytes, otherwise unremarkable. Review of urine culture from previous visit does not indicate infection. Given that patient denies fall or other trauma do not feel imaging is indicated at this time. Treat patient for lumbar radiculopathy with cyclobenzaprine, prednisone, lidocaine patches. Instructed patient to follow up with PCP as she may require physical therapy if symptoms do not improve. Return precautions discussed at bedside. Patient verbalized understanding of and agreement with plan. Differential Diagnosis Differential Diagnoses: The differential diagnosis associated with the presentation includes As per MDM. Lab Data [facility] Lab Attestation statement: I reviewed the patient's lab results. As per [facility]. Labs: Lab Results 03/17/24 Range/Units 00:16 Urine Color Yellow Urine Appearance Clear Urine pH 7.5 (5.0-9.0) Ur Specific [place] 1.025 (1.005-1.025) Urine Protein Negative (Neg-Trace) mg/dL Urine Glucose (UA) Negative (Negative) mg/dL Urine Ketones Negative (Negative) mg/dL Urine Blood Negative (Negative) Urine Nitrite Negative (Negative) Ur Leukocyte Esterase Trace H (Negative) Urine RBC 0-2 (0-2) /HPF Urine WBC 0-5 (0-5) /HPF Ur Squamous Epith Cells 6-10 (0-2) /HPF Urine Bacteria 1+ (None Seen) Hyaline Casts 0-2 (0-2) /LPF External Record Review External record reviewed: Inpatient record, Office record and Outpatient record Prescription Management I considered prescription management with: Pain Medication and Other Discharge Plan Discharge Clinical Impression: Lumbar radiculopathy Patient Disposition: Home, Self-Care Instructions: Acute Low Back Pain (ED), Lumbar Radiculopathy (ED), Lower Back Exercises (ED) Additional Instructions: You were evaluated in the emergency department today for back pain. Your evaluation did not show signs of medical conditions requiring emergent intervention at this time. We recommended that you use ibuprofen or Tylenol per package directions every 6 hours as needed for pain. If necessary, you can alternate these medications so that you take one medication every 3 hours. For instance, at noon take ibuprofen, then at 3:00 p.m. take Tylenol, then at 6:00 p.m. take ibuprofen. You have been prescribed a muscle relaxer which you may take every 8 hours as needed for spasms. You have been prescribed 5% topical lidocaine patches which you can wear for up to 12 hours in a 24 hour period. Do not apply heat directly over the patches. You are also being prescribed a course of steroids to decrease inflammation. Please schedule an appointment for follow-up with your primary care physician this week for further evaluation of your symptoms. You may require physical therapy if your symptoms do not improve. Return to the emergency department if you experience worsening back pain, difficulty walking, fevers, numbness, tingling, incontinence, groin numbness or tingling, or any other concerning symptoms. Prescriptions: New cyclobenzaprine 5 mg tablet 5 mg PO TID PRN (Reason: muscle spasm) Qty: 10 0RF lidocaine 5 % adhesive patch,medicated 1 patch topical DAILY Qty: 15 0RF Rx Instructions: leave on most painful area for up to 12 hrs prednisone 20 mg tablet 40 mg PO DAILY Qty: 10 0RF No Action cephalexin 500 mg capsule 500 mg PO QID Qty: 28 0RF melatonin 5 mg capsule PO Print Language: Lithuanian
[2024-03-17 07:59] VITALS: BP 110/64; PULSE 64; RESP 14; TEMP 36.5; O2SAT 100
[2024-03-17 08:33] VITALS: BP 110/64; PULSE 64; RESP 14; TEMP 36.5; O2SAT 100
== END 2024-03-17 08:34 | disposition home or self-care (01) ==
PROVIDERS: Emergency Provider Emergency Medicine
DX: M54.16 Radiculopathy, lumbar region (principal); M54.50 Low back pain, unspecified
CPT/HCPCS: 81001; 99283

== ENCOUNTER 2024-11-14 18:45 | Emergency (ER) | payer OTHER, SELFPAY ==
--- NOTE | 2024-11-14 19:12 | ED_ITS ---
HPI - General Adult General Chief complaint: Abdominal Pain Stated complaint: lower back/abd pain Time Seen by Provider: 11/14/24 21:31 Source: patient, RN notes reviewed and old records reviewed Mode of arrival: ambulatory Limitations: no limitations History of Present Illness ED Provider: Felisa KIRKLAND narrative: 28-year-old female presents for evaluation of pelvic pain. Patient reports a burning lower abdominal/pelvic pain that radiated around to her back. The symptoms started this afternoon. They lasted a few minutes and she was experienced this episode several times throughout the day. Currently she was not experiencing any symptoms. She was concerned that she may have bacterial vaginosis as this feels similar to what she was experiencing in the past. She denies any nausea vomiting, diarrhea. Denies any concern for sexually transmitted infections. Denies any fevers or chills Related Data Home Medications ?Medication ?Instructions ?Recorded ?Confirmed melatonin 5 mg capsule mg PO 01/27/24 01/27/24 Previous Rx's ?Medication ?Instructions ?Recorded cephalexin 500 mg capsule 500 mg PO QID #28 caps 02/17/24 cyclobenzaprine 5 mg tablet 5 mg PO TID PRN muscle spasm #10 03/17/24 tabs lidocaine 5 % topical patch 1 patch topical DAILY #15 ea 03/17/24 prednisone 20 mg tablet 40 mg (2 x 20 mg) PO DAILY #10 tabs 03/17/24 metronidazole 500 mg tablet 500 mg PO BID #14 tabs 11/14/24 Allergies Allergy/AdvReac Type Severity Reaction Status Date / Time No Known Allergies Allergy Verified 11/14/24 19:15 Review of Systems 2 Constitutional: Constitutional: Denies body ache(s), Denies chills, Denies fever(s), Denies frequent falls and Denies headache(s) Eyes: Eyes: Denies blurry vision ENT: Denies vertigo, Denies dizziness, Denies headache(s) and Denies sore throat Cardiovascular: Cardiovascular: Denies chest pain and Denies dyspnea Respiratory: Respiratory: Denies cough and Denies dyspnea Gastrointestinal: Gastrointestinal: Reports abdominal pain, Denies nausea and Denies vomiting Genitourinary: Genitourinary: Reports pelvic pain and Reports vaginal discharge Musculoskeletal: Musculoskeletal: Reports back pain Integumentary/Breasts: Skin/Breast: Denies rash Neurologic: Denies vertigo, Denies dizziness, Denies frequent falls and Denies headache(s) Psychiatric: Psychiatric: Denies anxiety PMFSH Past Medical History Surgical History No pertinent past surgical history Family History Family History Mother Colon cancer Maternal Grandmother Lung cancer Social History Social History Housing: Apartment Patient Tobacco Use Status: Never used Tobacco e-Cigarette/Vaping Use: Never Used Second Hand Smoke Exposure: No Advance Directives: No Advance Directives Information Provided: No Do you have a plan to hurt others: No Plan service: No Current occupational status: employed 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 Current occupational exposures/hazards: No Cognitive needs: No Hearing needs: No Vision needs: No Physical Exam ED Vital Signs: Vital Signs - 24 hr 11/14/24 19:13 11/14/24 22:33 Temperature 98.4 F 98.7 F Pulse Rate 77 78 Respiratory Rate 16 18 Blood Pressure 113/75 107/59 L Pulse Oximetry 100 100 Oxygen Delivery Method Room Air Room Air BMI result Body Mass Index 19.9 Const General: healthy appearing, comfortable, no acute distress, alert and awake Nutritional Appearance: well nourished Orientation/consciousness: patient oriented x3 HENMT Head: Yes normocephalic and Yes atraumatic Eyes Eyelids: Yes eyelids normal Conjunctivae: conjunctivae normal Sclerae: sclerae normal Corneas: corneas normal Pupils: Equal, round and reactive pupils present EOM: EOMs intact bilaterally Neck Neck: Yes full ROM Resp Effort & Inspection: normal respiratory effort, able to speak in complete sentences and not labored GI Inspection: No distended Palpation (GI): Soft to palpation, not firm, nontender, no guarding and not rigid Skin General skin exam: elasticity normal Neuro General: patient oriented x3 Cranial nerves: Yes Equal, round and reactive pupils present and Yes Bilaterally intact EOM present Cognition (Neuro): normal cognition Extrem Other: Moving all extremities well without any obvious deformities Course Course Course Narrative: This is a rapid medical exam performed by Wilmer Jama NP: Additional HPI, ROS, PE not included below will be deferred to primary provider. 11/14/24 19:12 Patient is a 28-year-old female presenting to the ED with complaint of burning lower back pain as well as abdominal pain, also felt a hot/tingling sensation in her chest. Woke with symptoms today. Has had some mucous in her stool, increased flatulence. Plan: EKG, viral serology, labs, UA Medical Decision Making Medical Decision Making [facility] Narrative: 28-year-old female presents for evaluation of pelvic pain that she has had a few episodes this afternoon. Currently she was no seen with a whatsoever. She denies any concern for sexually transmitted infections. She was concerned that she may have bacterial vaginosis. Given that she is currently asymptomatic, she has no fevers, no tenderness on exam of the abdomen, I discussed pelvic examination with her which the patient declines. She would prefer to self swab for bacterial vaginosis but did agree to be swabs for gonorrhea and chlamydia as well. Her labs show no concerning findings, no leukocytosis or anemia. Chemistry without any significant abnormalities warranting intervention. Patient's urinalysis shows 1+ bacteria with trace esterase, no nitrites, no blood. No white cells, she has no urinary symptoms, we will await culture: This may be a contaminant. The patient is not Differential Diagnosis Differential Diagnoses: The differential diagnosis associated with the presentation includes Bacterial vaginosis UTI Constipation Ovarian cyst Uterine fibroids STI Lab Data [facility] Lab Attestation statement: I reviewed the patient's lab results. As above 11/14/24 19:44 11/14/24 19:43 Labs: Lab Results 11/14/24 11/14/24 11/14/24 Range/Units 19:42 19:43 19:44 WBC 5.6 (4.8-10.8) X10*3/uL RBC 4.55 (4.20-5.50) X10*6/uL Hgb 13.6 (12.0-16.0) g/dl Hct 39.9 (37.0-47.0) % MCV 87.7 (80.0-98.0) fL MCH 29.9 (27.0-33.0) pg MCHC 34.1 (31.0-35.0) g/dl RDW 12.8 (11.0-16.0) % Plt Count 284 (160-400) X10*3/uL MPV 9.1 L (9.4-12.3) fL Immature Gran % (Auto) 0.2 (0.0-0.4) % Neut % (Auto) 59.1 (45-73) % Lymph % (Auto) 25.1 (20-40) % [place] % (Auto) 13.3 H (2-11) % Eos % (Auto) 1.4 (0-4) % Baso % (Auto) 0.9 (0-2) % Lymph # (Auto) 1.4 (1.2-4.9) X10*3/uL [place] # (Auto) 0.7 (0.1-1.2) X10*3/uL Eos # (Auto) 0.1 (0.0-0.4) X10*3/uL Baso # (Auto) 0.1 (0.0-0.2) X10*3/uL Abs Immat Gran (auto) 0.01 (0.00-0.03) X10*3/uL Absolute Neuts (auto) 3.3 (2.0-8.3) x10*3/uL Absolute Nucleated RBC 0.000 (0.0-0.012) X10*3/uL Nucleated RBC % (auto) 0.0 (0.0-0.2) /100WBC Sodium 143 (135-145) mmol/L Potassium 3.8 (3.3-5.1) mmol/L Chloride 109 H (96-108) mmol/L Carbon Dioxide 25 (22-29) mmol/L Anion Gap 13 (12-20) BUN 10 (9-16) mg/dL Creatinine 0.69 (0.5-1.4) mg/dL Estim Creat Clear Calc 100.0 Estimated GFR > 60 Random Glucose 90 (60-115) mg/dL Calcium 8.9 (8.4-10.2) mg/dL Total Bilirubin 0.3 (0.0-1.0) mg/dL AST 25 (5-31) U/L ALT 21 (0-31) U/L Alkaline Phosphatase 78 (39-117) U/L Total Protein 7.3 (6.5-8.0) g/dL Albumin 4.6 (3.5-5.0) g/dL Beta HCG, Quant < 2 mIU/mL Urine Color Yellow Urine Appearance Clear Urine pH 6.5 (5.0-9.0) Ur Specific [place] 1.025 (1.005-1.025) Urine Protein Negative (Neg-Trace) mg/dL Urine Glucose (UA) Negative (Negative) mg/dL Urine Ketones Trace (Negative) mg/dL Urine Blood Negative (Negative) Urine Nitrite Negative (Negative) Ur Leukocyte Esterase Trace H (Negative) Urine RBC 0-2 (0-2) /HPF Urine WBC 0-5 (0-5) /HPF Ur Squamous Epith Cells 3-5 (0-2) /HPF Urine Bacteria 1+ (None Seen) Hyaline Casts 0-2 (0-2) /LPF Influenza Type A (PCR) NEGATIVE (Negative) Influenza Type B (PCR) NEGATIVE (Negative) RSV RNA Qual (PCR) NEGATIVE (Negative) SARS-CoV-2 RNA (RT-PCR) NEGATIVE (Negative) Discharge Plan Discharge Clinical Impression: Pelvic pain Patient Disposition: Home, Self-Care Instructions: Pelvic Pain (ED) Additional Instructions: Take metronidazole twice daily for 1 week Do not drink alcohol while taking this medication We will call you if you are STI testing results positive Use ibuprofen/Tylenol for pain. Follow-up with your primary doctor, return for new or worsening symptoms Prescriptions: New metronidazole 500 mg tablet 500 mg PO BID Qty: 14 0RF No Action cephalexin 500 mg capsule 500 mg PO QID Qty: 28 0RF cyclobenzaprine 5 mg tablet 5 mg PO TID PRN (Reason: muscle spasm) Qty: 10 0RF lidocaine 5 % adhesive patch,medicated 1 patch topical DAILY Qty: 15 0RF Rx Instructions: leave on most painful area for up to 12 hrs prednisone 20 mg tablet 40 mg PO DAILY Qty: 10 0RF melatonin 5 mg capsule PO Print Language: Cook Islander
[2024-11-14 19:13] VITALS: BP 113/75; PULSE 77; RESP 16; TEMP 36.9; O2SAT 100; BMI 19.9
--- NOTE | 2024-11-14 19:14 | ECG_ITS ---
Test Reason : chest pain Blood Pressure : */* mmHG Vent. Rate : 75 BPM Atrial Rate : 75 BPM P-R Int : 138 ms QRS Dur : 72 ms QT Int : 370 ms P-R-T Axes : 20 81 55 degrees QTcB Int : 413 ms Normal sinus rhythm Normal ECG No previous ECGs available Referred By: Maddie Jama Electronically Signed By: Rei Berumen
[2024-11-14 19:49] LABS: MANUAL DIFF FLAG NO
[2024-11-14 19:50] LABS: Basophils Absolute Auto 0.1 X10*3/uL (0.0-0.2); Basophils Percent Auto 0.9 % (0-2); Eosinophils Absolute Auto 0.1 X10*3/uL (0.0-0.4); Eosinophils Percent Auto 1.4 % (0-4); Hematocrit 39.9 % (37.0-47.0); Hemoglobin 13.6 g/dl (12.0-16.0); Imm Gran Abs Auto 0.01 X10*3/uL (0.00-0.03); Imm Gran Pct Auto 0.2 % (0.0-0.4); Lymphocytes Absolute Auto 1.4 X10*3/uL (1.2-4.9); Lymphocytes Percent Auto 25.1 % (20-40); Mean Corpuscular HGB Conc 34.1 g/dl (31.0-35.0); Mean Corpuscular Hemoglobin 29.9 pg (27.0-33.0); Mean Corpuscular Volume 87.7 fL (80.0-98.0); Mean Platelet Volume 9.1 fL (9.4-12.3); Monocytes Absolute Auto 0.7 X10*3/uL (0.1-1.2); Monocytes Percent Auto 13.3 % (2-11); Neutrophils Absolute Auto 3.3 x10*3/uL (2.0-8.3); Neutrophils Percent Auto 59.1 % (45-73); Platelet Count 284 X10*3/uL (160-400); Red Blood Count 4.55 X10*6/uL (4.20-5.50); Red Cell Distribution Width 12.8 % (11.0-16.0); White Blood Count 5.6 X10*3/uL (4.8-10.8)
[2024-11-14 19:51] LABS: Appearance Urine Clear; Color Urine Yellow; Glucose Urine UA Negative (Negative); Leukocyte Esterase Urine Trace (Negative); Nitrite Urine Negative (Negative); PH 6.5 (5.0-9.0); Specific Gravity - Urine 1.025 (1.005-1.025); UMIC TRIGGER UACC YES; Urine Blood Negative (Negative); Urine Ketones Trace mg/dL (Negative); Urine Protein Negative (Neg-Trace)
[2024-11-14 19:56] LABS: Bacteria Urine 1+ (None Seen); Hyaline Casts Urine 0-2 /LPF (0-2); RBC Urine 0-2 /HPF (0-2); WBC Urine 0-5 /HPF (0-5)
[2024-11-14 20:11] LABS: Alanine Aminotransferase 21 U/L (0-31); Albumin Level 4.6 g/dL (3.5-5.0); Alkaline Phosphatase 78 U/L (39-117); Anion Gap 13 (12-20); Aspartate Amino Transferase 25 U/L (5-31); Bilirubin Total 0.3 mg/dL (0.0-1.0); Blood Urea Nitrogen 10 mg/dL (9-16); Calcium 8.9 mg/dL (8.4-10.2); Carbon Dioxide 25 mmol/L (22-29); Chloride 109 mmol/L (96-108); Estimated Glomerular Filt Rate > 60; Glucose Random 90 mg/dL (60-115); Potassium 3.8 mmol/L (3.3-5.1); Sodium 143 mmol/L (135-145); Total Protein 7.3 g/dL (6.5-8.0)
[2024-11-14 20:16] LABS: HCG Quantitative < 2 mIU/mL
[2024-11-14 20:27] LABS: Influenza A PCR NEGATIVE (Negative); Influenza B PCR NEGATIVE (Negative); Resp Syncy Virus RNA Qual PCR NEGATIVE (Negative); SARS COV2 PCR INHOUSE NEGATIVE (Negative)
[2024-11-14 22:33] VITALS: BP 107/59; PULSE 78; RESP 18; TEMP 37.1; O2SAT 100
[2024-11-14] MEDS: metroNIDAZOLE 500 MG TABLET PO (23:56)
[2024-11-14 23:58] VITALS: BP 107/59; PULSE 78; RESP 18; TEMP 37.1; O2SAT 100
[2024-11-15 11:57] LABS: Bacterial Vaginosis PCR POSITIVE (Negative); Candida Group PCR NOT DETECTED (Not Detect); Candida glab krusei PCR NOT DETECTED (Not Detect); Trichomonas vaginalis PCR NOT DETECTED (Not Detect)
[2024-11-15 12:28] LABS: CT PCR NOT DETECTED (Not Detect.); NG PCR NOT DETECTED (Not Detect.)
== END 2024-11-14 23:59 | disposition home or self-care (01) ==
PROVIDERS: Physician Assistant; Registered Nurse Emergency; Emergency Provider Internal Medicine
DX: M54.50 Low back pain, unspecified (principal); R10.2 Pelvic and perineal pain; R07.89 Other chest pain; Z03.818 Encounter for observation for suspected exposure to other biological agents ruled out; Z79.899 Other long term (current) drug therapy
CPT/HCPCS: 0241U; 80053; 81001; 81515; 84702; 85025; 87491; 87591; 93005; 99283; 99284

== ENCOUNTER → 2024-11-14 19:14 | Outpatient (BNV) | payer OTHER, SELFPAY | PROVIDERS: Emergency Provider Internal Medicine; Visit Provider Internal Medicine Cardiovascular Disease | DX: R07.9 Chest pain, unspecified (principal) | CPT/HCPCS: 93010 ==

== ENCOUNTER 2024-12-01 11:21 | Outpatient (AMB) | payer OTHER, SELFPAY ==
[2024-12-01 11:09] VITALS: BP 122/64; BMI 20.6
--- NOTE | 2024-12-01 11:09 | A.OFFVIS_ITS ---
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 It has been a few years since she has had 1. She sees a primary care provider she has no real health problems she is trying to eat healthy and take care of herself she bikes and does yoga and abdominal exercises. She is not sexually active at the moment but she has been in the somewhat recent past and she did get checked for STIs after that. She is not interested in a method of control at this time though she would rather not be in the near future, so we did discuss options.. At the end of the visit she decided she would accept the plan B prescription but plans to use condoms. 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 She is also in school. She has no particular health concerns today she has had BV recur in the past but she thinks she is fine now. Her periods are regular. Her mom got diagnosed with colon cancer at a very early stage in the recent years, and is doing well, and the patient herself has been told that she should start screening at age 34. 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 Current occupational exposures/hazards: No Cognitive needs: No Hearing needs: No Vision needs: No Female Reproductive History Menstrual Age of Menarche: 11 Duration of menses: 6-7 days Date of last menstrual period: 11/04/24 control method: none Total pregnancies: 0 History of abnormal pap smear: Yes (2019 HPV positive negative since) History of STI: No Physical Exam Vital Signs: BMI result Body Mass Index 20.6 Const General: healthy appearing, comfortable, no acute distress, well developed and alert Nutritional Appearance: average body habitus Orientation/consciousness: patient oriented x3 Limitations: no limitations HEENT Head: Yes normocephalic Neck Neck: Yes normal visual inspection Chest Chest palpation & inspection: normal inspection of the chest Breast/axilla inspection: normal inspection of the breasts and normal inspection of the axillae Breast/axilla palpation: normal palpation of the breasts and normal palpation of the axillae Resp Effort & Inspection: normal respiratory effort GI Inspection: Yes normal to inspection, No Abdominal wall edema and No distended Palpation (GI): Soft to palpation and nontender Other: External exam within normal limits vagina is pink and moist healthy appearing mucus cervix nulliparous pink smooth some ectropion noted very normal healthy appearing mucus cervix is long close thick mobile uterus is small anteverted and tilted very slightly to patient's right both ovaries palpable and small and mobile nontender good tone with Kegel General: Yes bladder normal to palpation External Female Exam: normal external appearance and normal appearance of the urethra Speculum Exam - Vagina: normal appearance of the vagina, normal palpation and normal vaginal discharge Speculum Exam - Cervix: normal appearance of the cervix, normal palpation and nontender Bimanual exam- vagina & uterus: normal bimanual exam, normal palpation, uterine size normal, bladder normal to palpation, consistency normal, normal palpation, uterine mobility normal, uterine shape normal, No Cervical tenderness present, non-tender and no cervical motion tenderness Bimanual Exam- Adnexa, other: normal adnexae, no masses, normal and No adnexal tenderness Neuro General: patient oriented x3 Assessment & Plan Assessment & Plan (1) Well woman exam with routine gynecological exam: Code(s): Z01.419 - Encounter for gynecological examination (general) (routine) without abnormal findings Category: Medical (2) Cervical cancer screening: Comment: History of HPV at age 22 which cleared. Has received the Gardasil vaccine. Pap smear done 12/01/2024 Code(s): Z12.4 - Encounter for screening for malignant neoplasm of cervix Category: Medical (3) Family hx of colorectal cancer: Comment: Her mother. Patient's states she was told to start screening at age 34. Code(s): Z80.0 - Family history of malignant neoplasm of digestive organs Category: Medical (4) control counseling: Comment: Condoms and Plan B. Code(s): Z30.09 - Encounter for other general counseling and advice on contraception Category: Medical Plan -----Discussed in this visit the following: healthy balanced diet, regular and consistent exercise, getting recommended health screens, doing the best she can for her particular health concerns, kegel exercises, pap smear screening and followup recommendations, mammography screening and SBE, normal changes in cycles in her life stage--- . Pap smear done testing for gonorrhea chlamydia trichomoniasis bacterial vaginosis and yeast discussed the normal findings of BV and yeast and that they do not need to be treated unless there symptomatic and discussed options for these as well. Offered other STI testing but she declines for now discussed possible future childbearing and where services are available in the [facility] and recommend starting from beginning with care provider's if at all possible. ---she is not currently sexually active and not planning to be but I offered p puja B as a backup to condoms to have at her pharmacy for availability should she need it. Applauded her healthy self-care and important work. Medications: New levonorgestrel (Plan B One-Step) 1.5 mg PO ONCE 1 tab 4RF Discontinued cephalexin Discontinued Reason: Patient no longer taking 500 mg PO QID 28 caps 0RF lidocaine 5% leave on most painful area for up to 12 hrs Discontinued Reason: Doctor's Order 1 patch topical DAILY 15 ea 0RF prednisone Discontinued Reason: Patient no longer taking 40 mg (2 x 20 mg) PO DAILY 10 tabs 0RF cyclobenzaprine Discontinued Reason: Patient no longer taking 5 mg PO TID PRN 10 tabs 0RF muscle spasm metronidazole Discontinued Reason: Patient no longer taking 500 mg PO BID 14 tabs 0RF Coding Level of Care Code New Pt Prev Care [id number] Diagnoses Well woman exam with routine gynecological exam Z01.419 Cervical cancer screening Z12.4 Family hx of colorectal cancer Z80.0 control counseling Z30.09
== END 2024-12-01 13:07 | disposition home or self-care (01) ==
LOC: HO.HWSM 11:21
PROVIDERS: Visit Provider Advanced Practice Midwife
DX: Z01.419 Encounter for gynecological examination (general) (routine) without abnormal findings (principal); Z80.0 Family history of malignant neoplasm of digestive organs
CPT/HCPCS: 99385; 99459

== ENCOUNTER 2024-12-01 11:21 | Outpatient (REF) | payer OTHER, SELFPAY ==
[2024-12-01 21:22] LABS: Bacterial Vaginosis PCR NEGATIVE (Negative); Candida Group PCR NOT DETECTED (Not Detect); Candida glab krusei PCR NOT DETECTED (Not Detect); Trichomonas vaginalis PCR NOT DETECTED (Not Detect)
[2024-12-01 22:06] LABS: CT PCR NOT DETECTED (Not Detect.); NG PCR NOT DETECTED (Not Detect.)
[2024-12-04 13:30] LABS: HPV Genotype 16 Negative (Negative); HPV Genotype 18 Negative (Negative); HPV High Risk Negative (Negative)
== END 2024-12-01 11:22 | disposition home or self-care (01) ==
LOC: HO.LNP 11:21
PROVIDERS: Visit Provider Advanced Practice Midwife
DX: Z01.419 Encounter for gynecological examination (general) (routine) without abnormal findings (principal); Z11.51 Encounter for screening for human papillomavirus (HPV); Z11.3 Encounter for screening for infections with a predominantly sexual mode of transmission
CPT/HCPCS: 81515; 87491; 87591; 87626; 88175; 99385; 99459